=== PATIENT | male | born 1990 | race American Indian/Alaskan Native ===

== ENCOUNTER 2016-10-12 09:11 | Emergency (ER) | payer SELFPAY ==
[2016-10-12 09:13] VITALS: BMI 24.2
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
[2016-10-12] MEDS ORDERED: Sodium Chloride 0.9% 1,000 ML IV STA (09:18)
[2016-10-12 09:19] VITALS: TEMP 97.7; O2SAT 100
[2016-10-12] MEDS ORDERED: DiphenhydrAMINE 50 mg/ml Inj IVP STA (09:19)
[2016-10-12 09:50] LABS: ADD MANUAL DIFF? NO
[2016-10-12 10:00] LABS: BASO # 0.04 K/mm3 (0.0-2.0); BASO % 0.6 % (0.0-3.0); EOS # 0.2 (0.0-0.7); EOS % 2.3 % (1.5-5.0); GRAN # 4.18 (1.4-6.5); GRAN % 65.5 % (50.0-68.0); HEMATOCRIT 42.6 % (42.0-52.0); LYMPH # 1.2 (1.2-3.4); LYMPH % 19.4 % (22.0-35.0); MEAN CELL VOLUME 79.3 fL (80.0-105.0); MEAN CORPUSCULAR HEMOGLOBIN 26.4 pg (25.0-35.0); MEAN CORPUSCULAR HGB CONC 33.3 g/dl (31.0-37.0); MEAN PLATELET VOLUME 10.5 fl (7.0-11.0); MONO # 0.8 (0.1-0.6); MONO % 12.2 % (1.0-6.0); PLATELET COUNT 200 10^3/uL (120.0-450.0); RED CELL DISTRIBUTION WIDTH 14.4 % (11.5-14.5); WHITE BLOOD COUNT 6.4 10^3/ul (4.5-11.0)
[2016-10-12 10:03] LABS: ALB/GLOB RATIO 1.1 (1.1-1.8); ALKALINE PHOSPHATASE 62 U/L (38-133); ALT/SGPT 44 U/L (7-56); AST/SGOT 39 U/L (15-59); BILIRUBIN,TOTAL 2.5 mg/dL (0.2-1.3); BLOOD UREA NITROGEN 12 mg/dL (7-21); CALCIUM 9.9 mg/dL (8.4-10.5); CARBON DIOXIDE 30 mmol/L (21-33); CHLORIDE 99 mmol/L (98-107); GFR AFRICAN-AMERICAN > 60; GLUCOSE,RANDOM 85 mg/dL (70-110); SODIUM 138 mmol/L (132-148); TOTAL PROTEIN 8.7 g/dL (5.8-8.3)
[2016-10-12 10:05] LABS: INR 0.99 (0.93-1.08); PARTIAL THROMBOPLASTIN TIME 28.5 Seconds (23.7-30.8)
--- NOTE | 2016-10-12 10:18 | CT ---
PROCEDURE: CT HEAD WITHOUT CONTRAST. HISTORY: headache COMPARISON: None available. TECHNIQUE: Axial computed tomography images were obtained through the head/brain without intravenous contrast. Radiation dose: Total exam DLP = 677.45 mGy-cm. This CT exam was performed using one or more of the following dose reduction techniques: Automated exposure control, adjustment of the mA and/or kV according to patient size, and/or use of iterative reconstruction technique. FINDINGS: HEMORRHAGE: No intracranial hemorrhage. BRAIN: No mass effect or edema. No atrophy or chronic microvascular ischemic changes. VENTRICLES: Unremarkable. No hydrocephalus. CALVARIUM: Unremarkable. PARANASAL SINUSES: Unremarkable as visualized. No significant inflammatory changes. MASTOID AIR CELLS: Unremarkable as visualized. No inflammatory changes. OTHER FINDINGS: None. IMPRESSION: Normal CT of the Head. No intracranial mass, hemorrhage or evidence of acute infarct.
[2016-10-12 11:01] VITALS: BP 125/64; PULSE 65; RESP 17
--- NOTE | 2016-10-13 11:10 | CARD ---
APPROVED REPORT EKG Measurement Heart [id number] [place] [id number] <Conclusion> Normal sinus rhythm Normal ECG
== END 2016-10-12 11:10 | disposition home or self-care (01) ==
LOC: ED 09:11
DX: R51 Headache (principal)
CPT/HCPCS: 70450; 80053; 85025; 85610; 85730; 93005; 96361; 96374; 96375; 99285; J1200; J2765; J7040

== ENCOUNTER 2016-10-25 07:20 | Observation (INO) | payer SELFPAY ==
[2016-10-25] MEDS ORDERED: Sodium Chloride 0.9% 1,000 ML IV STA (07:55)
--- NOTE | 2016-10-25 08:07 | ED PDOC ---
Arrival/HPI - General Chief Complaint: Weakness/Neurological Deficit Time Seen by Provider: 10/25/16 07:47 Historian: Patient - History of Present Illness Narrative History of Present Illness (Text): 10/25/16 07:55 A 26 year old, whose past medical history includes post concussion syndrome, presents to the emergency department after a syncopal episode at work. Patient reports he was feeling fine throughout the night prior to episode, denies any headaches, chest pain or shortness of breath. He states this morning he felt dizzy, went outside to get fresh air and while going back inside to work he passed out. He reports he loss consciousness for a few seconds and hit the left side of his head on the floor. Patient denies any other injuries, fever, chills , nausea, vomiting, diarrhea, abdominal pain, chest pain, shortness of breath or any other complaints. Patient reports he experienced a headache and syncopal episode 2 weeks ago and 5 months ago. 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 He reports eating normally today. He denies drug use. He denies change in usual habits and denies that the episode was triggered by sitting to standing. PMD: None Time/Duration: Prior to Arrival Symptom Course: Unchanged Quality: Other Context: Work Past Medical History - Provider Review Nursing Documentation Reviewed: Yes - Infectious Disease Hx of Infectious Diseases: None - Neurological Other/Comment: post concusion syndrom - Psychiatric Hx Substance Use: No - Anesthesia Hx Anesthesia: No Family/Social History - Physician Review Nursing Documentation Reviewed: Yes Family/Social History: No Known Family HX Smoking Status: Unknown If Ever Smoked Hx Alcohol Use: No Hx Substance Use: No Allergies/Home Meds Allergies/Adverse Reactions: Allergies No Known Allergies Allergy (Verified 10/12/16 09:16) Review of Systems - Physician Review All systems were reviewed & negative as marked: Yes - Review of Systems Constitutional: absent: Fevers, Night Sweats Eyes: absent: Vision Changes ENT: absent: Hearing Changes Respiratory: absent: SOB, Cough, Sputum, Wheezing Cardiovascular: Syncope. absent: Chest Pain, Palpitations, Edema Gastrointestinal: absent: Abdominal Pain, Constipation, Diarrhea, Nausea, Vomiting Genitourinary Male: absent: Dysuria Musculoskeletal: absent: Arthralgias Skin: absent: Rash Neurological: Dizziness. absent: Headache, Focal Weakness, Gait Changes, Speech Changes, Facial Droop Hemo/Lymphatic: absent: Adenopathy Psychiatric: absent: Anxiety Physical Exam Vital Signs Reviewed: Yes Vital Signs Temp Pulse Resp BP Pulse Ox 10/25/16 07:32 97.8 F 81 20 156/93 H 99 10/25/16 07:26 97.8 F 77 16 127/69 99 Temperature: Afebrile Blood Pressure: Normal Pulse: Regular Respiratory Rate: Normal Appearance: Positive for: Well-Appearing, Non-Toxic, Comfortable Pain Distress: None Mental Status: Positive for: Alert and Oriented X 3 Finger Stick Blood Glucose: 89 - Systems Exam Head: Present: Atraumatic, Normocephalic Pupils: Present: PERRL Extroacular Muscles: Present: EOMI Conjunctiva: Present: Normal Mouth: Present: Moist Mucous Membranes Neck: Present: Normal Range of Motion. No: MIDLINE TENDERNESS Respiratory/Chest: Present: Clear to Auscultation, Good Air Exchange. No: Respiratory Distress, Accessory Muscle Use Cardiovascular: Present: Regular Rate and Rhythm, Normal S1, S2. No: Murmurs Abdomen: Present: Normal Bowel Sounds. No: Tenderness, Distention, Peritoneal Signs Back: Present: Normal Inspection Upper Extremity: Present: Normal Inspection. No: Cyanosis, Edema Lower Extremity: Present: Normal Inspection. No: Edema Neurological: Present: GCS=15, CN II-XII Intact, Speech Normal, Gait Normal Skin: Present: Warm, Dry, Normal Color. No: Rashes Psychiatric: Present: Alert, Oriented x 3, Normal Insight, Normal Concentration Medical Decision Making ED Course and Treatment: 10/25/16 07:55 Impression: A 26 year old male with dizziness and syncope. Patient reports head trauma and loss of consciousness. Patient has experienced similar episodes twice before. Differential Diagnosis included but are not limited to: Plan: -- Head CT -- Chest xray -- EKG -- Labs -- Tylenol and IV fluids -- Reassess and disposition Prior Visits: Notes and results from previous visits were reviewed. Patient last seen in the ED on 10/12/16 for near syncope. Patient was referred to a neurologist, however , has not followed up. Progress Notes: EKG shows NSR at 67 BPM with normal intervals and no St changes, QTc 49. Interpreted by me. Report Date : 10/25/2016 08:39:50 PROCEDURE: CT HEAD WITHOUT CONTRAST. Dictator : Jv Carlisle MD IMPRESSION: Normal CT of the Head. Report Date : 10/25/2016 08:52:20 Procedure: Chest xray Dictator : Jv Carlisle MD IMPRESSION: No active disease. 10/25/16 08:48 CT head negative. Cxray negative. CBC and CMP WNL. D-dimer negative. No significant change in orthostatic vitals. I have no explanation for syncope today. This presentation is concerning due to 2 prior episodes of near syncope. He has no triggering factors such as sitting to standing, exposure to chemicals or dehydration. I am concerned that patient is unable to follow-up with neurology or internal medicine as he has no PMD and no insurance. Although he is young with no cardiac risk factors, his lack of ability to follow -up, combined with multiple recent episodes with no clear trigger puts him at risk and I don't believe I can safely dc. Will transfer to [facility] under hospitalist. Spoke with Dr. Todd Martell. - Lab Interpretations Lab Results: 10/25/16 07:50 10/25/16 07:50 Lab Results 10/25/16 07:50: D-Dimer, Quantitative 0.19 10/25/16 07:50: Sodium 139, Potassium 4.0, Chloride 102, Carbon Dioxide 30, Anion Gap 11, BUN 9, Creatinine 0.9, Est GFR ( Amer) > 60, Est GFR (Non- Af Amer) > 60, Random Glucose 69 L, Calcium 9.1, Phosphorus 3.5, Magnesium 2.2, Total Bilirubin 0.9, AST 32, ALT 36, Alkaline Phosphatase 105, Total Creatine Kinase 358 H, CK-MB (CK-2) 2.9, CK-MB (CK-2) % 0.8 L, Troponin I < 0.01, Total Protein 7.5, Albumin 4.2, Globulin 3.3, Albumin/Globulin Ratio 1.3 10/25/16 07:50: WBC 4.8 D, RBC 5.06, Hgb 13.3 L, Hct 40.4 L, MCV 79.8 L, MCH 26.3, MCHC 32.9, RDW 14.4, Plt Count 188, MPV 10.4, Gran % 61.1, Lymph % (Auto) 22.0, [place] % (Auto) 13.4 H, Eos % (Auto) 2.9, Baso % (Auto) 0.6, Gran # 2.91, Lymph # 1.1 L, [place] # 0.6, Eos # 0.1, Baso # 0.03 I have reviewed the lab results: Yes - RAD Interpretation Radiology Orders: 10/25/16 07:55 HEAD W/O CONTRAST [CT] Stat CHEST TWO VIEWS (PA/LAT) [RAD] Stat - Medication Orders Current Medication Orders: Discontinued Medications Acetaminophen (Tylenol 325mg Tab) 975 mg PO STAT STA Stop: 10/25/16 08:00 Last Admin: 10/25/16 08:52 Dose: 975 mg Sodium Chloride (Sodium Chloride 0.9%) 1,000 mls @ 999 mls/hr IV .Q1H1M STA Stop: 10/25/16 08:55 Last Admin: 10/25/16 08:53 Dose: 999 mls/hr - Scribe Statement The provider has reviewed the documentation as recorded by the Alyssaibem Vizcaino Provider Scribe Attestation: All medical record entries made by the Scribe were at my direction and personally dictated by me. I have reviewed the chart and agree that the record accurately reflects my personal performance of the history, physical exam, medical decision making, and the department course for this patient. I have also personally directed, reviewed, and agree with the discharge instructions and disposition. Disposition/Present on Arrival - Present on Arrival Any Indicators Present on Arrival: No History of DVT/PE: No History of Uncontrolled Diabetes: No Urinary Catheter: No History of Decub. Ulcer: No History Surgical Site Infection Following: None - Disposition Have Diagnosis and Disposition been Completed?: Yes Diagnosis: Syncope Disposition: HOSPITALIZED Disposition Time: 08:54 Patient Plan: Observation Patient Problems: Current Active Problems Problem Status Onset Syncope Acute Condition: FAIR
[2016-10-25 08:10] LABS: ADD MANUAL DIFF? NO
[2016-10-25 08:14] LABS: BASO # 0.03 K/mm3 (0.0-2.0); BASO % 0.6 % (0.0-3.0); EOS # 0.1 (0.0-0.7); EOS % 2.9 % (1.5-5.0); GRAN # 2.91 (1.4-6.5); GRAN % 61.1 % (50.0-68.0); HEMATOCRIT 40.4 % (42.0-52.0); LYMPH # 1.1 (1.2-3.4); MEAN CELL VOLUME 79.8 fL (80.0-105.0); MEAN CORPUSCULAR HEMOGLOBIN 26.3 pg (25.0-35.0); MEAN CORPUSCULAR HGB CONC 32.9 g/dl (31.0-37.0); MEAN PLATELET VOLUME 10.4 fl (7.0-11.0); MONO # 0.6 (0.1-0.6); MONO % 13.4 % (1.0-6.0); PLATELET COUNT 188 10^3/uL (120.0-450.0); RED CELL DISTRIBUTION WIDTH 14.4 % (11.5-14.5); WHITE BLOOD COUNT 4.8 10^3/ul (4.5-11.0)
[2016-10-25 08:24] LABS: ALB/GLOB RATIO 1.3 (1.1-1.8); ALKALINE PHOSPHATASE 105 U/L (38-133); ALT/SGPT 36 U/L (7-56); AST/SGOT 32 U/L (15-59); BILIRUBIN,TOTAL 0.9 mg/dL (0.2-1.3); BLOOD UREA NITROGEN 9 mg/dL (7-21); CALCIUM 9.1 mg/dL (8.4-10.5); CARBON DIOXIDE 30 mmol/L (21-33); CHLORIDE 102 mmol/L (98-107); GFR AFRICAN-AMERICAN > 60; GLUCOSE,RANDOM 69 mg/dL (70-110); MAGNESIUM 2.2 mg/dL (1.7-2.2); PHOSPHOROUS 3.5 mg/dL (2.5-4.5); SODIUM 139 mmol/L (132-148); TOTAL PROTEIN 7.5 g/dL (5.8-8.3)
[2016-10-25 08:37] LABS: TROPONIN I < 0.01 ng/mL
--- NOTE | 2016-10-25 08:41 | CT ---
PROCEDURE: CT HEAD WITHOUT CONTRAST. HISTORY: fall from standing COMPARISON: 10/12/2016 CT TECHNIQUE: Axial computed tomography images were obtained through the head/brain without intravenous contrast. Radiation dose: Total exam DLP = 677 mGy-cm. This CT exam was performed using one or more of the following dose reduction techniques: Automated exposure control, adjustment of the mA and/or kV according to patient size, and/or use of iterative reconstruction technique. FINDINGS: HEMORRHAGE: No intracranial hemorrhage. BRAIN: No mass effect or edema. No atrophy or chronic microvascular ischemic changes. VENTRICLES: Unremarkable. No hydrocephalus. CALVARIUM: Unremarkable. PARANASAL SINUSES: Unremarkable as visualized. No significant inflammatory changes. MASTOID AIR CELLS: Unremarkable as visualized. No inflammatory changes. OTHER FINDINGS: None. IMPRESSION: Normal CT of the Head.
--- NOTE | 2016-10-25 08:54 | RAD ---
HISTORY: syncope COMPARISON: No prior. TECHNIQUE: Chest PA and lateral FINDINGS: LUNGS: No active pulmonary disease. PLEURA: No significant pleural effusion identified. No pneumothorax apparent. CARDIOVASCULAR: Normal. OSSEOUS STRUCTURES: No significant abnormalities. VISUALIZED UPPER ABDOMEN: Normal. OTHER FINDINGS: None. IMPRESSION: No active disease.
--- NOTE | 2016-10-25 10:16 | CARD ---
APPROVED REPORT EKG Measurement Heart [id number] <Conclusion> Normal sinus rhythm Normal ECG
[2016-10-25] MEDS: Sodium Chloride 0.9% 1,000 ML IV SCH ×3 (10:45→21:45)
[2016-10-25] MEDS ORDERED: Apap-Butalbital-Caffeine 325-50-40mg Tab PO PRN (13:02)
--- NOTE | 2016-10-25 13:24 | CP.PCM.HP ---
Addendum entered and electronically signed by Tram Lara DO 10/25/16 13:57: accuchecks ordered, pt's initial glucose is 69 Original Note: <Tram Lara - Last Filed: 10/25/16 13:44> History of Present Illness - History of Present Illness History of Present Illness: Hospitalist Note for Dr. Alan ZELAYA HPI: 26 yo M w/ PMHx of asthma, in winter only, presents to ED via EMS after AM syncopal episode and fall. 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 Cannot say how long he lost consciousness for, but remembers trying to get up and being too weak, and falling again. Security at his place of work called the EMS. Denies fever, urinary or bowel incontinence, tongue biting, numbness, tingling, dizziness, chest pain, N/V, abdominal pain, and urinary or stool changes. PMHx: asthma Psxhx: denies, other than tooth extraction 2 years prior ALL: NKDA Medications: fiorcet social: denies smoking, etoh, illicit drugs Present on Admission - Present on Admission Any Indicators Present on Admission: No Review of Systems - Review of Systems All systems: reviewed and no additional remarkable complaints except - Constitutional Constitutional: absent: Chills, Fever - Cardiovascular Cardiovascular: absent: Chest Pain, Dyspnea - Respiratory Respiratory: absent: Cough, Dyspnea - Gastrointestinal Gastrointestinal: absent: Abdominal Pain, Diarrhea - Genitourinary Genitourinary: absent: Hematuria, Pyuria - Neurological Neurological: Syncope, Weakness Past Patient History - Infectious Disease Hx of Infectious Diseases: None - Past Social History Smoking Status: Unknown If Ever Smoked - NEUROLOGICAL Other/Comment: post concusion syndrom - PSYCHIATRIC Hx Substance Use: No - ANESTHESIA Hx Anesthesia: No Meds Allergies/Adverse Reactions: Allergies Allergy/AdvReac Type Severity Reaction Status Date / Time No Known Allergies Allergy Verified 10/12/16 09:16 Physical Exam - Head Exam Head Exam: NORMAL INSPECTION, NORMOCEPHALIC - Eye Exam Eye Exam: EOMI, Normal appearance - ENT Exam ENT Exam: Mucous Membranes Moist, Normal Exam - Respiratory Exam Respiratory Exam: Clear to Auscultation Bilateral, NORMAL BREATHING PATTERN - Cardiovascular Exam Cardiovascular Exam: +S1, +S2. absent: Tachycardia - GI/Abdominal Exam GI & Abdominal Exam: Soft. absent: Tenderness - Exam External exam: absent: Erythema, Lacerations - Extremities Exam Extremities exam: Negative for: pedal edema, tenderness - Neurological Exam Neurological exam: Alert, CN II-XII Intact, Oriented x3 - Skin Skin Exam: Intact, Normal Color Results - Vital Signs Recent Vital Signs: Last Vital Signs Temp 98.5 F 10/25/16 12:00 Pulse 60 10/25/16 12:00 Resp 20 10/25/16 12:00 BP 102/54 L 10/25/16 12:00 Pulse Ox 97 10/25/16 10:40 - Labs Result Diagrams: 10/25/16 07:50 10/25/16 07:50 Assessment & Plan - Assessment and Plan (Free Text) Plan: 26 yo M w/PMHx of asthma (cold weather) and prior admissions for syncope, presents with syncope and reported fall this AM. CT head negative for acute hemorrhage, EKG NSR at 67 bpm w/o st elevations or depressions. Initial troponin level is negative, and cbc and cmp wnl. Orthostatic vitals do not support orthostatic hypotension. Telemetry Observation for syncope. Syncope: ECHO ordered neurology consult, help appreciated NS 100cc/hr neurochecks UDS PPx measures: zofran protonix barb stocking ambulation <Alan ZELAYA,Adolfo - Last Filed: 10/25/16 14:30> Results - Vital Signs Recent Vital Signs: Last Vital Signs Temp 97.8 F 10/25/16 13:25 Pulse 61 10/25/16 13:25 Resp 16 10/25/16 13:25 BP 121/66 10/25/16 13:25 Pulse Ox 97 10/25/16 10:40 - Labs Result Diagrams: 10/25/16 07:50 10/25/16 07:50 Attending/Attestation - Attestation I have personally seen and examined this patient.: Yes I have fully participated in the care of the patient.: Yes I have reviewed all pertinent clinical information: Yes Notes (Text): 10/25/16 14:27 Patient was seen and examined with medical or surgical instrument maker .Agreed with resident assessment and plan. 26 Yrs old young male with PMH of intermittent asthma, [place] is admitted with episode of syncope while walking, likely orthostatic hypotension, EKG NSR, CT head is negative, there is no focal deficit, will hydrate patien, will monitor in tele for arrhythmia for 24 hour, had similar episode 2 weeks back. If no arrhythmia can be discharged in 24 hour. Management plan was discussed in detail with patient Education was provided.
[2016-10-25 13:34] VITALS: BMI 25.0
[2016-10-25] MEDS ORDERED: Pneumococcal 23-Valent Vaccine IM ONE (13:34)
[2016-10-25] MEDS ORDERED: Naproxen 550 mg Tab PO PRN (14:00)
[2016-10-25] MEDS: Pantoprazole 40 mg EC Tab PO SCH (14:37)
[2016-10-26 05:49] VITALS: O2SAT 99
[2016-10-26 08:38] LABS: ADD MANUAL DIFF? NO
[2016-10-26 08:49] LABS: BASO # 0.01 K/mm3 (0.0-2.0); BASO % 0.2 % (0.0-3.0); EOS # 0.2 (0.0-0.7); EOS % 3.1 % (1.5-5.0); GRAN # 3.14 (1.4-6.5); GRAN % 60.8 % (50.0-68.0); LYMPH # 1.1 (1.2-3.4); LYMPH % 21.9 % (22.0-35.0); MEAN CELL VOLUME 80.2 fL (80.0-105.0); MEAN CORPUSCULAR HEMOGLOBIN 26.2 pg (25.0-35.0); MEAN CORPUSCULAR HGB CONC 32.7 g/dl (31.0-37.0); MONO # 0.7 (0.1-0.6); PLATELET COUNT 175 10^3/uL (120.0-450.0); RED CELL DISTRIBUTION WIDTH 14.6 % (11.5-14.5); WHITE BLOOD COUNT 5.2 10^3/ul (4.5-11.0)
[2016-10-26 08:51] LABS: ALB/GLOB RATIO 1.3 (1.1-1.8); ALKALINE PHOSPHATASE 60 U/L (38-133); ALT/SGPT 35 U/L (7-56); AST/SGOT 25 U/L (15-59); BILIRUBIN,TOTAL 1.3 mg/dL (0.2-1.3); BLOOD UREA NITROGEN 10 mg/dL (7-21); CALCIUM 8.8 mg/dL (8.4-10.5); CARBON DIOXIDE 28 mmol/L (21-33); CHLORIDE 103 mmol/L (95-110); GFR AFRICAN-AMERICAN > 60; GLUCOSE,RANDOM 89 mg/dL (70-110); POTASSIUM 4.1 mmol/L (3.6-5.0); SODIUM 138 mmol/L (132-148); TOTAL PROTEIN 7.1 g/dL (5.8-8.3)
[2016-10-26] MEDS: Pantoprazole 40 mg EC Tab PO SCH (09:29)
[2016-10-26 11:54] VITALS: RESP 20
[2016-10-26] MEDS: Sodium Chloride 0.9% 1,000 ML IV SCH (13:18)
--- NOTE | 2016-10-26 16:22 | CP.PCM.DIS ---
<Tram Lara - Last Filed: 10/26/16 23:59> Provider - Provider Date of Admission: 10/25/16 09:21 Attending physician: Wendy Martell MD Primary care physician: NO PRIMARY CARE PROVIDER Consults: Dr. Sara Henry, neurology Time Spent in preparation of Discharge (in minutes): 35 Hospital Course - Lab Results Lab Results: Most Recent Lab Values WBC 5.2 10^3/ul (4.5-11.0) 10/26/16 08:20 RBC 5.11 10^6/uL (3.5-6.1) 10/26/16 08:20 Hgb 13.4 gm/dL (14.0-18.0) L 10/26/16 08:20 Hct 41.0 % (42.0-52.0) L 10/26/16 08:20 MCV 80.2 fL (80.0-105.0) 10/26/16 08:20 MCH 26.2 pg (25.0-35.0) 10/26/16 08:20 MCHC 32.7 g/dl (31.0-37.0) 10/26/16 08:20 RDW 14.6 % (11.5-14.5) H 10/26/16 08:20 Plt Count 175 10^3/uL (120.0-450.0) 10/26/16 08:20 MPV 10.0 fl (7.0-11.0) 10/26/16 08:20 Gran % 60.8 % (50.0-68.0) 10/26/16 08:20 Lymph % (Auto) 21.9 % (22.0-35.0) L 10/26/16 08:20 [place] % (Auto) 14.0 % (1.0-6.0) H 10/26/16 08:20 Eos % (Auto) 3.1 % (1.5-5.0) 10/26/16 08:20 Baso % (Auto) 0.2 % (0.0-3.0) 10/26/16 08:20 Gran # 3.14 (1.4-6.5) 10/26/16 08:20 Lymph # 1.1 (1.2-3.4) L 10/26/16 08:20 [place] # 0.7 (0.1-0.6) H 10/26/16 08:20 Eos # 0.2 (0.0-0.7) 10/26/16 08:20 Baso # 0.01 K/mm3 (0.0-2.0) 10/26/16 08:20 D-Dimer, Quantitative 0.19 mg/L FEU (0-0.50) 10/25/16 07:50 Sodium 138 mmol/L (132-148) 10/26/16 08:20 Potassium 4.1 mmol/L (3.6-5.0) 10/26/16 08:20 Chloride 103 mmol/L (95-110) 10/26/16 08:20 Carbon Dioxide 28 mmol/L (21-33) 10/26/16 08:20 Anion Gap 11 (10-20) 10/26/16 08:20 BUN 10 mg/dL (7-21) 10/26/16 08:20 Creatinine 0.9 mg/dL (0.5-1.4) 10/26/16 08:20 Est GFR ( Amer) > 60 10/26/16 08:20 Est GFR (Non-Af Amer) > 60 10/26/16 08:20 POC Glucose (mg/dL) 86 mg/dL (65-110) 10/26/16 07:14 Random Glucose 89 mg/dL (70-110) 10/26/16 08:20 Calcium 8.8 mg/dL (8.4-10.5) 10/26/16 08:20 Phosphorus 3.5 mg/dL (2.5-4.5) 10/25/16 07:50 Magnesium 2.2 mg/dL (1.7-2.2) 10/25/16 07:50 Total Bilirubin 1.3 mg/dL (0.2-1.3) 10/26/16 08:20 AST 25 U/L (15-59) 10/26/16 08:20 ALT 35 U/L (7-56) 10/26/16 08:20 Alkaline Phosphatase 60 U/L (38-133) 10/26/16 08:20 Total Creatine Kinase 358 U/L (35-230) H 10/25/16 07:50 CK-MB (CK-2) 2.9 ng/mL (0.0-3.6) 10/25/16 07:50 CK-MB (CK-2) % 0.8 % (2.5-3.0) L 10/25/16 07:50 Troponin I < 0.01 ng/mL 10/25/16 07:50 Total Protein 7.1 g/dL (5.8-8.3) 10/26/16 08:20 Albumin 4.0 g/dL (3.0-4.8) 10/26/16 08:20 Globulin 3.2 gm/dL 10/26/16 08:20 Albumin/Globulin Ratio 1.3 (1.1-1.8) 10/26/16 08:20 - Hospital Course Hospital Course: 26 YO M with PMHx of intermittent asthma, migraine is admitted with episode of syncope while walking. Had similar episode two weeks prior. EKG NSR, CT head is negative, there is no focal deficit. Treated with IV hydration and under telemetry monitoring for syncope. Discharged in fair condition after ECHO, and evaluation by Dr. Henry, neurology consult. Pt instructed to f/u with PMD and neurology, and given scripts for meclizine and thiamine, folic acid, and multivitamin. Discharge Exam - Head Exam Head Exam: NORMAL INSPECTION, NORMOCEPHALIC - Eye Exam Eye Exam: EOMI, Normal appearance Pupil Exam: NORMAL ACCOMODATION, PERRL - Respiratory Exam Respiratory Exam: NORMAL BREATHING PATTERN, UNREMARKABLE - Cardiovascular Exam Cardiovascular Exam: Bradycardia, +S1, +S2 - GI/Abdominal Exam GI & Abdominal Exam: Soft. absent: Tenderness - Exam External exam: absent: Ecchymosis, Erythema - Extremities Exam Extremities exam: normal capillary refill, pedal pulses present - Neurological Exam Neurological exam: Alert, CN II-XII Intact, Oriented x3 - Skin Skin Exam: Dry, Intact Discharge Plan - Discharge Medications Prescriptions: Folic Acid 1 mg PO DAILY #14 tab Meclizine [Meclizine*] 25 mg PO Q6 #30 tab Multivitamin [Daily Vitamin Formula] 1 each PO DAILY #14 tablet Thiamine [Vitamin B1 Tab] 100 mg PO DAILY #14 tab - Follow Up Plan Condition: FAIR Disposition: HOME/ ROUTINE Instructions: Syncope (DC), Syncope (GEN) Additional Instructions: You are discharged home. Please follow-up with your PMD of choice within one week for neurology referral and f/u care. Please return to the emergency department for worsening of symptoms. Please take the new medications of meclizine and thiamine, folic acid and multivitamin as directed. Referrals: [facility] [Outside] PCP,NO [Primary Care Provider] - <Adolfo Phillips MD - Last Filed: 10/29/16 07:30> Provider - Provider Date of Admission: 10/25/16 09:21 Attending physician: Wendy Martell MD Primary care physician: NO PRIMARY CARE PROVIDER Hospital Course - Lab Results Lab Results: Most Recent Lab Values WBC 5.2 10^3/ul (4.5-11.0) 10/26/16 08:20 RBC 5.11 10^6/uL (3.5-6.1) 10/26/16 08:20 Hgb 13.4 gm/dL (14.0-18.0) L 10/26/16 08:20 Hct 41.0 % (42.0-52.0) L 10/26/16 08:20 MCV 80.2 fL (80.0-105.0) 10/26/16 08:20 MCH 26.2 pg (25.0-35.0) 10/26/16 08:20 MCHC 32.7 g/dl (31.0-37.0) 10/26/16 08:20 RDW 14.6 % (11.5-14.5) H 10/26/16 08:20 Plt Count 175 10^3/uL (120.0-450.0) 10/26/16 08:20 MPV 10.0 fl (7.0-11.0) 10/26/16 08:20 Gran % 60.8 % (50.0-68.0) 10/26/16 08:20 Lymph % (Auto) 21.9 % (22.0-35.0) L 10/26/16 08:20 [place] % (Auto) 14.0 % (1.0-6.0) H 10/26/16 08:20 Eos % (Auto) 3.1 % (1.5-5.0) 10/26/16 08:20 Baso % (Auto) 0.2 % (0.0-3.0) 10/26/16 08:20 Gran # 3.14 (1.4-6.5) 10/26/16 08:20 Lymph # 1.1 (1.2-3.4) L 10/26/16 08:20 [place] # 0.7 (0.1-0.6) H 10/26/16 08:20 Eos # 0.2 (0.0-0.7) 10/26/16 08:20 Baso # 0.01 K/mm3 (0.0-2.0) 10/26/16 08:20 D-Dimer, Quantitative 0.19 mg/L FEU (0-0.50) 10/25/16 07:50 Sodium 138 mmol/L (132-148) 10/26/16 08:20 Potassium 4.1 mmol/L (3.6-5.0) 10/26/16 08:20 Chloride 103 mmol/L (95-110) 10/26/16 08:20 Carbon Dioxide 28 mmol/L (21-33) 10/26/16 08:20 Anion Gap 11 (10-20) 10/26/16 08:20 BUN 10 mg/dL (7-21) 10/26/16 08:20 Creatinine 0.9 mg/dL (0.5-1.4) 10/26/16 08:20 Est GFR ( Amer) > 60 10/26/16 08:20 Est GFR (Non-Af Amer) > 60 10/26/16 08:20 POC Glucose (mg/dL) 82 mg/dL (65-110) 10/26/16 16:11 Random Glucose 89 mg/dL (70-110) 10/26/16 08:20 Calcium 8.8 mg/dL (8.4-10.5) 10/26/16 08:20 Phosphorus 3.5 mg/dL (2.5-4.5) 10/25/16 07:50 Magnesium 2.2 mg/dL (1.7-2.2) 10/25/16 07:50 Total Bilirubin 1.3 mg/dL (0.2-1.3) 10/26/16 08:20 AST 25 U/L (15-59) 10/26/16 08:20 ALT 35 U/L (7-56) 10/26/16 08:20 Alkaline Phosphatase 60 U/L (38-133) 10/26/16 08:20 Total Creatine Kinase 358 U/L (35-230) H 10/25/16 07:50 CK-MB (CK-2) 2.9 ng/mL (0.0-3.6) 10/25/16 07:50 CK-MB (CK-2) % 0.8 % (2.5-3.0) L 10/25/16 07:50 Troponin I < 0.01 ng/mL 10/25/16 07:50 Total Protein 7.1 g/dL (5.8-8.3) 10/26/16 08:20 Albumin 4.0 g/dL (3.0-4.8) 10/26/16 08:20 Globulin 3.2 gm/dL 10/26/16 08:20 Albumin/Globulin Ratio 1.3 (1.1-1.8) 10/26/16 08:20 Attending/Attestation - Attestation I have personally seen and examined this patient.: Yes I have fully participated in the care of the patient.: Yes I have reviewed all pertinent clinical information, including history, physical exam and plan: Yes Notes (Text): 10/29/16 07:26 Patient was seen and examined with behavioral medical director .Agreed with resident assessment and plan. 26 Yrs old male was admitted with syncope, patient was monitored in tele, no cardiac arrythmia was noticed.He also has 2D Echo that showed EF 65%, there was no significant valvular abnormalities.Patient CT scan of head was normal.He was also evaluated by Neurology, no further work up was recommended.Patient is ambulatory at the time of discharge.Patient was having mild positional vertigo and was treated with PRN Meclizine. Management plan was discussed in detail with patient Education was provided.
--- NOTE | 2016-10-26 17:12 | CARD ---
APPROVED REPORT EXAM: Two-dimensional and M-mode echocardiogram with Doppler and color Doppler. INDICATION Syncope 2D DIMENSIONS Left Atrium (2D)4.0 (1.6-4.0cm)IVSd0.9 (0.7-1.1cm) LVDd4.6 (3.9-5.9cm)PWd1.1 (0.7-1.1cm) LVDs2.9 (2.5-4.0cm)FS (%) 35.9 % LVEF (%)65.6 (>50%) M-Mode DIMENSIONS Aortic Root3.20 (2.2-3.7cm)Aortic Cusp Exc.2.20 (1.5-2.0cm) Aortic Valve AoV Peak Iodlxufl889.0cm/Sophy Peak GR.6mmHg Mitral Valve MV E Ixlugins03.7cm/sMV A Kkxsmcdb72.8cm/sE/A ratio1.9 TDI Lateral E' Peak V14.20cm/sMedial E' Peak V10.30cm/sE/Lateral E'7.0 E/Medial E'9.6 Pulmonary Valve PV Peak Bebiscvq18.1cm/sPV Peak Grad.2mmHg Tricuspid Valve TR Peak Npjmaugy824il/sRAP [id number] Peak Gr.25mmHg [id number] LEFT VENTRICLE The left ventricle is normal size. There is normal left ventricular wall thickness. The left ventricular function is normal.EF-65% There is normal LV segmental wall motion. The left ventricular diastolic function is normal. No left ventricle thrombus noted on this study. There is no ventricular septal defect visualized. There is no left ventricular aneurysm. There is no mass noted in the left ventricle. RIGHT VENTRICLE The right ventricle is normal size. There is normal right ventricular wall thickness. The right ventricular systolic function is normal. ATRIA The left atrium is borderline dilated. The right atrium size is normal. The interatrial septum is intact with no evidence for an atrial septal defect. AORTIC VALVE The aortic valve is thickened but opens well. There is trace to mild aortic regurgitation. There is no aortic valvular stenosis. There is no aortic valvular vegetation. MITRAL VALVE The mitral valve is thickened but opens well. Mitral regurgitation is mild. There is no mitral valve stenosis. There is no evidence of mitral valve prolapse. TRICUSPID VALVE The tricuspid valve leaflets are thickened , but open well. There is trace to mild tricuspid regurgitation.RVSP-35 mmof Hg. There is no tricuspid valve stenosis. There is no tricuspid valve prolapse or vegetation. PULMONIC VALVE The pulmonary valve is normal in structure. There is trace pulmonic valvular regurgitation. There is no pulmonic valvular stenosis. GREAT VESSELS The aortic root is normal in size. The ascending aorta is normal in size. The pulmonary artery is normal. The IVC is normal in size and collapses >50% with inspiration. PERICARDIAL EFFUSION There is no pleural effusion. There is no pericardial effusion. <Conclusion> Normal Chamber Size. EF-65% There is trace to mild aortic regurgitation. Mitral regurgitation is mild. There is trace to mild tricuspid regurgitation.RVSP-35 mmof Hg.
[2016-10-26 18:33] VITALS: BP 104/60; PULSE 63; TEMP 99.3
--- NOTE | 2016-10-26 20:00 | CON ---
DATE: 10/26/2016 A 26-year-old black male with past medical history of asthma, and came here with a syncopal episode. The patient fell at work and lost consciousness, hitting his head. CAT scan of the head was done, w hich was reported negative, no bleed. PAST MEDICAL HISTORY: Asthma. ALLERGIES: No known drug allergies. MEDICATIONS: Fioricet. PHYSICAL EXAMINATION: HEENT: Normocephalic, atraumatic. NECK: Supple. NEUROLOGIC: Alert, awake, oriented x 3. No aphasia. Cranial nerves II through XII were tested. Pu pils reactive. EOM intact. Visual pickard full. No facial asymmetry. Tongue midline. Motor examin ation: Moves all the extremities equally. Tone normal. Deep tendon reflexes 1+. Both plantars are downgoing. Sensory appears intact. Cerebellar gait deferred. IMPRESSION: Syncope, less likely seizure. CAT scan of the head was negative. Blood pressure was 10 2/54. LABORATORY DATA: WBC 4.8, hemoglobin 13.3, hematocrit 40.4, platelets 188. Sodium 139, potassium 4, chloride is 102, CO2 30, glucose 69, BUN 9, creatinine 0.9. PLAN: Continue present management. We will follow up. Duncan Henry MD cc: [id number] TT: 10/26/2016 19:59:45 Confirmation # [id number] Dictation # [id number]
== END 2016-10-26 20:47 | disposition home or self-care (01) ==
LOC: ED 07:20 → ERH 09:21 → 2RSO 11:13
PROVIDERS: ADMIT Hospitalist; ATTEND Hospitalist
DX: I95.1 Orthostatic hypotension (principal); R55 Syncope and collapse; H81.10 Benign paroxysmal vertigo, unspecified ear; G43.909 Migraine, unspecified, not intractable, without status migrainosus; J45.20 Mild intermittent asthma, uncomplicated
CPT/HCPCS: 36415; 70450; 71020; 80053; 82550; 82553; 82948; 83735; 84100; 84484; 85025; 85378; 93005; 93306; 96360; 99285; G0378; J7040

== ENCOUNTER 2016-12-11 16:43 | Emergency (ER) | payer OTHER ==
[2016-12-11 16:44] VITALS: BMI 25.0
[2016-12-11 16:48] VITALS: PULSE 70; TEMP 99
[2016-12-11] MEDS ORDERED: Sodium Chloride 0.9% 1,000 ML IV STA (17:05)
[2016-12-11 17:38] LABS: ADD MANUAL DIFF? NO
[2016-12-11 17:50] LABS: BASO # 0.04 K/mm3 (0.0-2.0); BASO % 0.8 % (0.0-3.0); EOS # 0.2 (0.0-0.7); EOS % 3.8 % (1.5-5.0); GRAN # 3.61 (1.4-6.5); GRAN % 67.7 % (50.0-68.0); HEMATOCRIT 39.6 % (42.0-52.0); LYMPH # 0.8 (1.2-3.4); LYMPH % 14.6 % (22.0-35.0); MEAN CORPUSCULAR HEMOGLOBIN 26.4 pg (25.0-35.0); MEAN CORPUSCULAR HGB CONC 32.6 g/dl (31.0-37.0); MONO # 0.7 (0.1-0.6); MONO % 13.1 % (1.0-6.0); PLATELET COUNT 142 10^3/uL (120.0-450.0); RED CELL DISTRIBUTION WIDTH 13.8 % (11.5-14.5); WHITE BLOOD COUNT 5.3 10^3/ul (4.5-11.0)
[2016-12-11 17:51] LABS: ALB/GLOB RATIO 1.2 (1.1-1.8); ALKALINE PHOSPHATASE 60 U/L (38-133); ALT/SGPT 33 U/L (7-56); AST/SGOT 30 U/L (15-59); BILIRUBIN,TOTAL 1.9 mg/dL (0.2-1.3); BLOOD UREA NITROGEN 11 mg/dL (7-21); CARBON DIOXIDE 26 mmol/L (21-33); CHLORIDE 103 mmol/L (98-107); GFR AFRICAN-AMERICAN > 60; GLUCOSE,RANDOM 83 mg/dL (70-110); POTASSIUM 3.4 mmol/L (3.6-5.0); SODIUM 138 mmol/L (132-148); TOTAL PROTEIN 7.1 g/dL (5.8-8.3)
[2016-12-11 17:58] LABS: INR 1.05 (0.93-1.08); PARTIAL THROMBOPLASTIN TIME 27.5 Seconds (23.7-30.8)
[2016-12-11 18:14] LABS: TROPONIN I < 0.01 ng/mL
--- NOTE | 2016-12-11 18:44 | CT ---
PROCEDURE: CT HEAD WITHOUT CONTRAST. HISTORY: syncope COMPARISON: Noncontrast head CT performed 10/25/16 TECHNIQUE: Axial computed tomography images were obtained through the head/brain without intravenous contrast. Radiation dose: Total exam DLP = 774.23 mGy-cm. This CT exam was performed using one or more of the following dose reduction techniques: Automated exposure control, adjustment of the mA and/or kV according to patient size, and/or use of iterative reconstruction technique. FINDINGS: HEMORRHAGE: No intracranial hemorrhage. BRAIN: No mass effect or edema. No atrophy or chronic microvascular ischemic changes.Please note that MRI with diffusion imaging is more sensitive in the detection of acute ischemic event. VENTRICLES: No hydrocephalus. CALVARIUM: Unremarkable. PARANASAL SINUSES: Mucosal thickening of the right greater than left ethmoid air cells. MASTOID AIR CELLS: Unremarkable as visualized. No inflammatory changes. OTHER FINDINGS: None. IMPRESSION: No acute intracranial pathology identified. Mucosal thickening of the right greater than left ethmoid air cells. Correlate clinically for sinusitis.
[2016-12-11] MEDS ORDERED: Potassium Chloride 20 mEq ER Tab PO STA (19:00)
--- NOTE | 2016-12-11 19:09 | ED PDOC ---
Arrival/HPI - General Chief Complaint: Syncope Time Seen by Provider: 12/11/16 16:58 Historian: Patient - History of Present Illness Narrative History of Present Illness (Text): 12/11/16 19:09 26yo male biba for near syncopal episode. Patient states he had a near syncopal episode episode after using his albuterol inhaler this afternoon. He notes previous history of dizziness/syncope. He denies any current somatic complaint. Denies focal weakness, visual changes, nausea, vomiting, any other complaint. Past Medical History - Provider Review Nursing Documentation Reviewed: Yes - Infectious Disease Hx of Infectious Diseases: None - Pulmonary Hx Asthma: Yes (as a child) - Neurological Hx Dizziness: Yes Other/Comment: post concusion syndrom - Musculoskeletal/Rheumatological Hx Falls: Yes (loc 5 mo ago and 2 wks ago) - Psychiatric Hx Substance Use: No - Surgical History Other/Comment: oral sx extra teeth extracted from bottom front and side - Anesthesia Hx Anesthesia: No Family/Social History - Physician Review Nursing Documentation Reviewed: Yes Family/Social History: Unknown Family HX Smoking Status: Unknown If Ever Smoked Hx Alcohol Use: No Hx Substance Use: No Allergies/Home Meds Allergies/Adverse Reactions: Allergies No Known Allergies Allergy (Verified 10/12/16 09:16) Home Medications: Home Meds Medication Instructions Recorded Confirmed Albuterol HFA [Ventolin HFA 90 0.09 mg IH PRN PRN 12/11/16 12/11/16 mcg/actuation (8 g)] Meclizine [Meclizine*] 25 mg PO PRN PRN 12/11/16 12/11/16 Review of Systems - Physician Review All systems were reviewed & negative as marked: Yes - Review of Systems Constitutional: Normal Eyes: Normal ENT: Normal Respiratory: Normal Cardiovascular: Normal Gastrointestinal: Normal Genitourinary Male: Normal Musculoskeletal: Normal Skin: Normal Neurological: Other (syncope) Endocrine: Normal Hemo/Lymphatic: Normal Psychiatric: Normal Physical Exam Vital Signs Reviewed: Yes Vital Signs Temp Pulse Resp BP Pulse Ox 12/11/16 18:44 70 18 128/72 100 12/11/16 16:47 99.0 F 70 20 130/67 98 Temperature: Afebrile Blood Pressure: Normal Pulse: Regular Respiratory Rate: Normal Appearance: Positive for: Well-Appearing, Non-Toxic, Comfortable Pain Distress: None Mental Status: Positive for: Alert and Oriented X 3 - Systems Exam Head: Present: Atraumatic, Normocephalic Pupils: Present: PERRL Extroacular Muscles: Present: EOMI Conjunctiva: Present: Normal Mouth: Present: Moist Mucous Membranes Neck: Present: Normal Range of Motion Respiratory/Chest: Present: Clear to Auscultation, Good Air Exchange. No: Respiratory Distress, Accessory Muscle Use Cardiovascular: Present: Regular Rate and Rhythm, Normal S1, S2. No: Murmurs Abdomen: Present: Normal Bowel Sounds. No: Tenderness, Distention, Peritoneal Signs Back: Present: Normal Inspection Upper Extremity: Present: Normal Inspection. No: Cyanosis, Edema Lower Extremity: Present: Normal Inspection. No: Edema Neurological: Present: GCS=15, CN II-XII Intact, Speech Normal, Motor Func Grossly Intact, Normal Sensory Function, Normal Cerebellar Funct, Norm Deep Tendon Reflexes, Gait Normal, Memory Normal, Normal 2Pt Descrimination, Other ( No focal neurological deficit) Skin: Present: Warm, Dry, Normal Color. No: Rashes Psychiatric: Present: Alert, Oriented x 3, Normal Insight, Normal Concentration Medical Decision Making ED Course and Treatment: 12/11/16 21:08 PT presented for stated history. He was neurological intact and in comfortable in ED. Lab was unremarkable. Head CT was negative. Pt have Echo in September for same complaint. He was advised to f/u with Neuro. Advised TRT ED for any new or worsening symptoms. - Lab Interpretations Lab Results: 12/11/16 17:30 12/11/16 17:30 Lab Results 12/11/16 17:30: Sodium 138, Potassium 3.4 L, Chloride 103, Carbon Dioxide 26, Anion Gap 12, BUN 11, Creatinine 1.0, Est GFR ( Amer) > 60, Est GFR (Non- Af Amer) > 60, Random Glucose 83, Calcium 9.0, Total Bilirubin 1.9 H, AST 30, ALT 33, Alkaline Phosphatase 60, Lactate Dehydrogenase 341, Total Creatine Kinase 262 H, CK-MB (CK-2) 1.2, CK-MB (CK-2) % Cancelled, Troponin I < 0.01, Total Protein 7.1, Albumin 3.9, Globulin 3.2, Albumin/Globulin Ratio 1.2 12/11/16 17:30: PT 11.3, INR 1.05, APTT 27.5 12/11/16 17:30: WBC 5.3, RBC 4.89, Hgb 12.9 L, Hct 39.6 L, MCV 81.0, MCH 26.4, MCHC 32.6, RDW 13.8, Plt Count 142, MPV 11.0, Gran % 67.7, Lymph % (Auto) 14.6 L , [place] % (Auto) 13.1 H, Eos % (Auto) 3.8, Baso % (Auto) 0.8, Gran # 3.61, Lymph # 0.8 L, [place] # 0.7 H, Eos # 0.2, Baso # 0.04 - RAD Interpretation Radiology Orders: 12/11/16 17:13 HEAD W/O CONTRAST [CT] Stat - Medication Orders Current Medication Orders: Discontinued Medications Sodium Chloride (Sodium Chloride 0.9%) 1,000 mls @ 999 mls/hr IV .Q1H1M STA Stop: 12/11/16 18:05 Last Admin: 12/11/16 17:37 Dose: 999 mls/hr Potassium Chloride (K-Dur 20 Meq Er Tab) 20 meq PO STAT STA Stop: 12/11/16 19:01 Disposition/Present on Arrival - Present on Arrival Any Indicators Present on Arrival: No History of DVT/PE: No History of Uncontrolled Diabetes: No Urinary Catheter: No History of Decub. Ulcer: No History Surgical Site Infection Following: None - Disposition Have Diagnosis and Disposition been Completed?: Yes Diagnosis: Syncope Disposition: HOME/ ROUTINE Disposition Time: 19:15 Patient Plan: Discharge Condition: STABLE Discharge Instructions (ExitCare): Syncope (ED) Additional Instructions: Follow up with a neurologist/PMD Return to ED for any new or worsening symptoms Referrals: PCP,NO [Primary Care Provider] - Follow up with primary Duncan Henry MD [Staff Provider] - Follow up with primary
[2016-12-11 19:48] VITALS: BP 128/72; RESP 18; O2SAT 100
--- NOTE | 2016-12-11 22:48 | CARD ---
APPROVED REPORT EKG Measurement Heart [id number] <Conclusion> Normal sinus rhythm RSR' or QR pattern in V1 suggests right ventricular conduction delay Borderline ECG
== END 2016-12-11 19:15 | disposition home or self-care (01) ==
LOC: ED 16:43
DX: R55 Syncope and collapse (principal)
CPT/HCPCS: 70450; 80053; 82550; 82553; 83615; 84484; 85025; 85610; 85730; 93005; 96360; 99285; J7040

== ENCOUNTER 2017-03-02 03:57 | Emergency (ER) | payer OTHER ==
[2017-03-02 03:58] VITALS: BMI 25.0
[2017-03-02 04:08] VITALS: TEMP 98.2
[2017-03-02] MEDS ORDERED: methylPREDNISolone 500 MG in Sodium Chloride 0.9% 100 ML IVPB STA (04:14)
[2017-03-02] MEDS ORDERED: Albuterol-Ipratrop 3 mg / 0.5 (3 ml) UD IH STA (04:14)
[2017-03-02] MEDS ORDERED: Sodium Chloride 0.9% 1,000 ML IV STA (04:14)
--- NOTE | 2017-03-02 04:18 | ED PDOC ---
Arrival/HPI - General Chief Complaint: Dizziness/Lightheaded Time Seen by Provider: 03/02/17 04:10 Historian: Patient - History of Present Illness Narrative History of Present Illness (Text): 03/02/17 04:15 26 year old male, whose past medical history includes asthma, presents to the emergency department complaining of a cold that began two weeks ago. He states that his asthma has been bothering while having this cold and has been using his inhaler. Patient also reports left sided migraines. Patient denies any fever , chills, chest pain, shortness of breath, nausea, vomiting, diarrhea, urinary symptoms, back pain, neck pain, or any other complaints. Time/Duration: > week (2 weeks) Symptom Course: Unchanged Activities at Onset: Light Context: Home Past Medical History - Provider Review Nursing Documentation Reviewed: Yes - Infectious Disease Hx of Infectious Diseases: None - Pulmonary Hx Asthma: Yes (as a child) - Neurological Hx Dizziness: Yes Other/Comment: post concusion syndrom - Musculoskeletal/Rheumatological Hx Falls: Yes (loc 5 mo ago and 2 wks ago) - Psychiatric Hx Substance Use: No - Surgical History Other/Comment: oral sx extra teeth extracted from bottom front and side - Anesthesia Hx Anesthesia: No Family/Social History - Physician Review Nursing Documentation Reviewed: Yes Family/Social History: No Known Family HX Smoking Status: Unknown If Ever Smoked Hx Alcohol Use: No Hx Substance Use: No Allergies/Home Meds Allergies/Adverse Reactions: Allergies No Known Allergies Allergy (Verified 10/12/16 09:16) Review of Systems - Physician Review All systems were reviewed & negative as marked: Yes - Review of Systems Constitutional: absent: Fevers Respiratory: Other (Cold associated with Asthma). absent: SOB Cardiovascular: absent: Chest Pain Gastrointestinal: absent: Diarrhea, Nausea, Vomiting Genitourinary Male: absent: Dysuria, Frequency, Hematuria Musculoskeletal: absent: Back Pain, Neck Pain Neurological: Headache (left sided migraine pains) Physical Exam - Physical Exam Narrative Physical Exam (Text): Constitutional: No acute distress. Head: Normocephalic. Atraumatic. Eyes: PERRL. Positive for Photophobia. ENT: Moist mucous membranes. Neck: Supple. No neck Stiffness. Cardiovascular: Regular rate. Chest: No tenderness. Respiratory: Decreased breath sounds. No wheezing. GI: Soft. Nontender. Nondistended. Back: No CVA tenderness. Musculoskeletal: No tenderness or swelling of extremities. Skin: No rash. Neurologic: Alert, no focal deficit. Vital Signs Reviewed: Yes Vital Signs Temp Pulse Resp BP Pulse Ox 03/02/17 04:07 98.2 F 76 18 124/76 99 03/02/17 04:06 97.4 F L 72 17 122/78 98 Temperature: Afebrile Blood Pressure: Normal Pulse: Regular Respiratory Rate: Normal Appearance: Positive for: Well-Appearing, Non-Toxic, Comfortable Pain Distress: None Mental Status: Positive for: Alert and Oriented X 3 Medical Decision Making ED Course and Treatment: 03/02/17 04:15 Impression: 26 year old male present complaining of a cold that began two weeks ago triggering his asthma. Associated symptoms include left sided migraines. Plan: -- CXR Two Views -- Duoneb -- Reglan -- SOLU-Medrol -- IV Fluids -- Toradol -- Tylenol -- Reassess and disposition Progress Notes: 03/02/17 05:28 CXR Impression: As read by me, no infiltrate consolidation. 03/02/17 05:36 Patient states he feels better and would like to go home. F/u PMD, return to ED for worsening pain, dyspnea, fever, or any other problem. - Lab Interpretations I have reviewed the lab results: Yes - RAD Interpretation Radiology Orders: 03/02/17 04:15 CHEST TWO VIEWS (PA/LAT) [RAD] Stat - Medication Orders Current Medication Orders: Discontinued Medications Acetaminophen (Tylenol 325mg Tab) 975 mg PO STAT STA Stop: 03/02/17 04:15 Last Admin: 03/02/17 04:33 Dose: 975 mg Albuterol/Ipratropium (Duoneb 3 Mg/0.5 Mg (3 Ml) Ud) 3 ml IH Q15M STA Stop: 03/02/17 04:15 Last Admin: 03/02/17 04:30 Dose: 3 ml Methylprednisolone 500 mg/ (Sodium Chloride) 100 mls @ 200 mls/hr IVPB STAT STA Stop: 03/02/17 04:15 Last Admin: 03/02/17 05:01 Dose: 200 mls/hr Sodium Chloride (Sodium Chloride 0.9%) 1,000 mls @ 999 mls/hr IV .Q1H1M STA Stop: 03/02/17 05:14 Last Admin: 03/02/17 04:32 Dose: 999 mls/hr Ketorolac Tromethamine (Toradol) 30 mg IVP STAT STA Stop: 03/02/17 04:15 Last Admin: 03/02/17 04:31 Dose: 30 mg Metoclopramide HCl (Reglan) 10 mg IVP STAT STA Stop: 03/02/17 04:15 Last Admin: 03/02/17 04:32 Dose: 10 mg - Alyssaibe Statement The provider has reviewed the documentation as recorded by the Priscila Eduardo All medical record entries made by the Priscila were at my direction and personally dictated by me. I have reviewed the chart and agree that the record accurately reflects my personal performance of the history, physical exam, medical decision making, and the department course for this patient. I have also personally directed, reviewed, and agree with the discharge instructions and disposition. Disposition/Present on Arrival - Present on Arrival Any Indicators Present on Arrival: No History of DVT/PE: No History of Uncontrolled Diabetes: No Urinary Catheter: No History of Decub. Ulcer: No History Surgical Site Infection Following: None - Disposition Have Diagnosis and Disposition been Completed?: Yes Diagnosis: Headache, Asthma attack Disposition: HOME/ ROUTINE Disposition Time: 05:36 Patient Plan: Discharge Condition: STABLE Discharge Instructions (ExitCare): Asthma (ED), Migraine Headache (ED) Prescriptions: Albuterol HFA [Ventolin HFA 90 mcg/actuation (8 g)] 2 puff IH Q6 #1 inhaler Prednisone [Deltasone] 3 tab PO DAILY #12 tablet Forms: [employer] (Serbian)
[2017-03-02 06:15] VITALS: BP 130/53; PULSE 81; RESP 16; O2SAT 100
--- NOTE | 2017-03-02 08:24 | RAD ---
HISTORY: cough COMPARISON: Chest x-ray performed 10/25/16 TECHNIQUE: Chest PA and lateral FINDINGS: LUNGS: No focal consolidation. PLEURA: No significant pleural effusion identified. No definite pneumothorax . CARDIOVASCULAR: Heart size appears within normal limits. OSSEOUS STRUCTURES: No acute osseous abnormality identified. VISUALIZED UPPER ABDOMEN: Unremarkable. OTHER FINDINGS: None. IMPRESSION: No focal consolidation, significant pleural effusion, or definite pneumothorax identified.
== END 2017-03-02 06:30 | disposition home or self-care (01) ==
LOC: ED 03:57
DX: R51 Headache (principal); J45.909 Unspecified asthma, uncomplicated
CPT/HCPCS: 71020; 94640; 96374; 96375; 99285; J1885; J2765; J2930; J7040

== ENCOUNTER 2017-03-10 14:40 | Emergency (ER) | payer OTHER ==
[2017-03-10 14:59] VITALS: O2SAT 100
[2017-03-10 15:02] VITALS: BMI 23.7
--- NOTE | 2017-03-10 15:26 | ED PDOC ---
Arrival/HPI - General Chief Complaint: Syncope Time Seen by Provider: 03/10/17 14:57 Historian: Patient - History of Present Illness Narrative History of Present Illness (Text): 03/10/17 15:14 A 26 year old male, whose past medical history includes asthma, presents to the emergency department via EMS after syncope at work immediately prior to arrival. He notes that prior to syncope he felt left sided chest tightness. No chest tightness now. The patient reports he has been having chronic migraines and for the last 6-7 months he has syncope at least once per month. He has not had much fluid intake today. The patient denies any chest pain, palpitations, fever, abdominal pain, nausea, vomiting, hematuria, dysuria, GI issues, head trauma, head injury, or any other complaints at this time. Time/Duration: Prior to Arrival Symptom Course: Improving Activities at Onset: Light Context: Work Past Medical History - Provider Review Nursing Documentation Reviewed: Yes - Infectious Disease Hx of Infectious Diseases: None - Cardiac Hx Cardiac Disorders: No - Pulmonary Hx Respiratory Disorders: Yes Hx Asthma: Yes - Neurological Hx Neurological Disorder: Yes Hx Dizziness: Yes Other/Comment: "post concusion syndrome" - HEENT Hx HEENT Disorder: No - Renal Hx Renal Disorder: No - Endocrine/Metabolic Hx Endocrine Disorders: No - Hematological/Oncological Hx Blood Disorders: No - Integumentary Hx Dermatological Disorder: No - Musculoskeletal/Rheumatological Hx Musculoskeletal Disorders: Yes Hx Falls: Yes (loc 5 mo ago and 2 wks ago) - Gastrointestinal Hx Gastrointestinal Disorders: No - Genitourinary/Gynecological Hx Genitourinary Disorders: No - Psychiatric Hx Psychophysiologic Disorder: No Hx Substance Use: No - Surgical History Other/Comment: oral sx extra teeth extracted from bottom front and side - Anesthesia Hx Anesthesia: No Family/Social History - Physician Review Nursing Documentation Reviewed: Yes Family/Social History: Unknown Family HX Smoking Status: Never Smoked Hx Alcohol Use: No Hx Substance Use: No Allergies/Home Meds Allergies/Adverse Reactions: Allergies No Known Allergies Allergy (Verified 03/10/17 14:43) Home Medications: Home Meds Medication Instructions Recorded Confirmed Albuterol HFA [Ventolin HFA 90 2 puff IH PRN PRN 03/10/17 03/10/17 mcg/actuation (8 g)] Review of Systems - Physician Review All systems were reviewed & negative as marked: Yes - Review of Systems Constitutional: absent: Fevers Respiratory: absent: SOB Cardiovascular: Other (Chest tightness ). absent: Chest Pain, Palpitations Gastrointestinal: absent: Abdominal Pain, Nausea, Vomiting, Hematochezia, Hematemesis Genitourinary Male: Normal Neurological: Other (syncope ) Physical Exam Vital Signs Reviewed: Yes Vital Signs Temp Pulse Resp BP Pulse Ox 03/10/17 18:41 98 F 85 20 121/71 100 03/10/17 14:58 97.9 F 57 L 16 132/65 100 Temperature: Afebrile Blood Pressure: Normal Pulse: Bradycardic Respiratory Rate: Normal Appearance: Positive for: Well-Appearing, Non-Toxic, Comfortable Pain Distress: None Mental Status: Positive for: Alert and Oriented X 3 - Systems Exam Head: Present: Atraumatic, Normocephalic Pupils: Present: PERRL Extroacular Muscles: Present: EOMI Conjunctiva: Present: Normal Mouth: Present: Moist Mucous Membranes Neck: Present: Normal Range of Motion Respiratory/Chest: Present: Clear to Auscultation, Good Air Exchange. No: Respiratory Distress, Accessory Muscle Use Cardiovascular: Present: Regular Rate and Rhythm, Normal S1, S2. No: Murmurs Abdomen: Present: Normal Bowel Sounds. No: Tenderness, Distention, Peritoneal Signs Back: Present: Normal Inspection Upper Extremity: Present: Normal Inspection. No: Cyanosis, Edema Lower Extremity: Present: Normal Inspection. No: Edema Neurological: Present: GCS=15, CN II-XII Intact, Speech Normal Skin: Present: Warm, Dry, Normal Color. No: Rashes Psychiatric: Present: Alert, Oriented x 3, Normal Insight, Normal Concentration Medical Decision Making ED Course and Treatment: 03/10/17 15:28 Impression: A 26 year old male who syncope Differential Diagnosis included but are not limited to: Dehydration vs Arrhythmia Plan: -- EKG -- Labs -- Chest X-Ray -- Saline Lock -- Fingerstick -- Urinalysis -- Reassess and disposition Prior Visits: Notes and results from previous visits were reviewed. The patient was last seen in the emergency department on 03/02/17 for dizziness. The patient was discharged home. Progress Notes: 03/10/17 15:30 EKG: Ordered, reviewed, and independently interpreted the EKG. Rate : 59 BPM Rhythm : Sinus Bradycardia Interpretation : No ST-segment elevations or depressions, no T-wave inversions, normal intervals. Comparison : No previous EKG for comparison. Patient was observed in the ED without any complaints. He drank fluids in the ED with no vomiting. He is feeling much better. Patient will be discharged home with the understanding that he needs to follow up with referred physician and a handtools repairer. He will make sure to make an appointment. He was advised and understands to return to the ED if symptoms worsen or any other concern. - Lab Interpretations Lab Results: 03/10/17 15:50 03/10/17 15:50 Lab Results 03/10/17 16:15: Urine Color Yellow, Urine Appearance Clear, Urine pH 6.0, Ur Specific [place] 1.020, Urine Protein Negative, Urine Glucose (UA) Negative, Urine Ketones Negative, Urine Blood Negative, Urine Nitrate Negative, Urine Bilirubin Negative, Urine Urobilinogen 0.2, Ur Leukocyte Esterase Negative 03/10/17 15:53: POC Glucose (mg/dL) 84 03/10/17 15:50: Sodium 137, Potassium 4.4, Chloride 101, Carbon Dioxide 31, Anion Gap 9 L, BUN 14, Creatinine 0.9, Est GFR ( Amer) > 60, Est GFR (Non -Af Amer) > 60, Random Glucose 80, Calcium 9.3, Magnesium 2.0, Total Bilirubin 1.0, AST 31, ALT 30, Alkaline Phosphatase 91, Lactate Dehydrogenase 392, Total Creatine Kinase 108, Troponin I < 0.01, Total Protein 7.3, Albumin 4.3, Globulin 3.1, Albumin/Globulin Ratio 1.4 03/10/17 15:50: WBC 5.4, RBC 5.14, Hgb 13.5 L, Hct 41.5 L, MCV 80.7, MCH 26.3, MCHC 32.5, RDW 14.2, Plt Count 178, MPV 10.8, Gran % 60.8, Lymph % (Auto) 24.4, [place] % (Auto) 10.8 H, Eos % (Auto) 3.4, Baso % (Auto) 0.6, Gran # 3.27, Lymph # 1.3, [place] # 0.6, Eos # 0.2, Baso # 0.03 I have reviewed the lab results: Yes Interpretation: All labs normal - RAD Interpretation Radiology Orders: 03/10/17 15:19 CHEST PORTABLE [RAD] Stat CXR normal. Furnace Reliner: ED Physician - Scribe Statement The provider has reviewed the documentation as recorded by the Priscila Tatum Provider Scribe Attestation: All medical record entries made by the Scribe were at my direction and personally dictated by me. I have reviewed the chart and agree that the record accurately reflects my personal performance of the history, physical exam, medical decision making, and the department course for this patient. I have also personally directed, reviewed, and agree with the discharge instructions and disposition. Disposition/Present on Arrival - Present on Arrival Any Indicators Present on Arrival: No History of DVT/PE: No History of Uncontrolled Diabetes: No Urinary Catheter: No History of Decub. Ulcer: No History Surgical Site Infection Following: None - Disposition Have Diagnosis and Disposition been Completed?: Yes Diagnosis: Syncope Disposition: HOME/ ROUTINE Disposition Time: 19:00 Patient Plan: Discharge Condition: IMPROVED Discharge Instructions (ExitCare): Syncope (ED) Additional Instructions: Mr Markham thank you for letting us take care of you today. Your provider was Dr. Hoover. You were treated for Syncope. The emergency medical care you received today was directed at your acute symptoms. If you were prescribed any medication, please fill it and take as directed. It may take several days for your symptoms to resolve. Return to the Emergency Department if your symptoms worsen, do not improve, or if you have any other problems. Please contact your doctor or call one of the physicians/clinics you have been referred to that are listed on the Patient Visit Information form that is included in your discharge packet. Bring any paperwork you were given at discharge with you along with any medications you are taking to your follow up visit. Our treatment cannot replace ongoing medical care by a primary care provider (PCP) outside of the emergency department. Thank you for allowing the [facility] team to be part of your care today. If you had an X-Ray or CT scan: A Radiologist will review the ED reading if any change in treatment is needed we will contact you. If you had a blood, urine, or wound culture: It will take several days for the results, if any change in treatment is needed we will contact you. If you had an STI test: It will take 48 hours for the results. Please call after 1 week if you have not heard back. Referrals: Adlyfe Ashley [Outside] - [place] up with primary [facility] [place] [facility] [place] [place] - Follow up with primary Yunier Lucero DO [Staff Provider] - Follow up with primary Momo Chacon MD [Staff Provider] - Follow up with primary Forms: [employer] (Serbian), WORK NOTE
[2017-03-10 16:02] LABS: BASO # 0.03 K/mm3 (0.0-2.0); BASO % 0.6 % (0.0-3.0); EOS # 0.2 (0.0-0.7); EOS % 3.4 % (1.5-5.0); GRAN # 3.27 (1.4-6.5); GRAN % 60.8 % (50.0-68.0); HEMATOCRIT 41.5 % (42.0-52.0); LYMPH # 1.3 (1.2-3.4); LYMPH % 24.4 % (22.0-35.0); MEAN CELL VOLUME 80.7 fl (80.0-105.0); MEAN CORPUSCULAR HEMOGLOBIN 26.3 pg (25.0-35.0); MEAN CORPUSCULAR HGB CONC 32.5 g/dl (31.0-37.0); MEAN PLATELET VOLUME 10.8 fl (7.0-11.0); MONO # 0.6 (0.1-0.6); MONO % 10.8 % (1.0-6.0); RED CELL DISTRIBUTION WIDTH 14.2 % (11.5-14.5); WHITE BLOOD COUNT 5.4 10^3/ul (4.5-11.0)
[2017-03-10 16:15] LABS: ALB/GLOB RATIO 1.4 (1.1-1.8); ALKALINE PHOSPHATASE 91 U/L (38-126); ALT/SGPT 30 U/L (7-56); AST/SGOT 31 U/L (17-59); BLOOD UREA NITROGEN 14 mg/dL (7-21); CALCIUM 9.3 mg/dL (8.4-10.5); CARBON DIOXIDE 31 mmol/L (21-33); CHLORIDE 101 mmol/L (98-107); GFR AFRICAN-AMERICAN > 60; GLUCOSE,RANDOM 80 mg/dL (70-110); POTASSIUM 4.4 mmol/L (3.6-5.0); SODIUM 137 mmol/L (132-148); TOTAL PROTEIN 7.3 g/dL (5.8-8.3)
[2017-03-10 16:40] LABS: URINE BILIRUBIN NEGATIVE (NEGATIVE); URINE BLOOD NEGATIVE (NEGATIVE); URINE GLUCOSE (UA) NEGATIVE (NEGATIVE); URINE KETONE NEGATIVE (NEGATIVE); URINE LEUKOCYTE ESTERASE NEGATIVE Leu/uL (NEGATIVE); URINE PROTEIN NEGATIVE mg/dL (<30 mg/dL); URINE UROBILINOGEN 0.2 E.U./dL (<1 E.U./dL)
--- NOTE | 2017-03-10 16:43 | RAD ---
HISTORY: syncope COMPARISON: 03/02/2017. FINDINGS: LUNGS: No active pulmonary disease. PLEURA: No significant pleural effusion identified, no pneumothorax apparent. CARDIOVASCULAR: Normal. OSSEOUS STRUCTURES: No significant abnormalities. VISUALIZED UPPER ABDOMEN: Normal. OTHER FINDINGS: None. IMPRESSION: No active disease. No significant interval change compared to the prior examination(s). Concordant results with the preliminary interpretation rendered by the emergency department physician procedure.
[2017-03-10 16:49] LABS: URINE APPEARANCE CLEAR (CLEAR); URINE COLOR YELLOW (YELLOW)
[2017-03-10 16:53] LABS: TROPONIN I < 0.01 ng/mL
[2017-03-10 19:27] VITALS: BP 121/71; PULSE 85; RESP 20; TEMP 98
--- NOTE | 2017-03-11 17:21 | CARD ---
APPROVED REPORT EKG Measurement Heart [id number] <Conclusion> Sinus bradycardia Otherwise normal ECG
== END 2017-03-10 19:28 | disposition home or self-care (01) ==
LOC: ED 14:40
DX: R55 Syncope and collapse (principal)

== ENCOUNTER 2017-07-06 22:55 | Emergency (ER) | payer OTHER ==
[2017-07-06 22:57] VITALS: BMI 26.1
[2017-07-06 23:00] VITALS: TEMP 98.1; O2SAT 100
[2017-07-06] MEDS ORDERED: Albuterol-Ipratrop 3 mg / 0.5 (3 ml) UD IH STA (23:18)
--- NOTE | 2017-07-07 01:03 | ED PDOC ---
Arrival/HPI - General Chief Complaint: Respiratory Distress Time Seen by Provider: 07/06/17 23:18 Historian: Patient - History of Present Illness Narrative History of Present Illness (Text): 07/07/17 01:01 26-year-old male with history of asthma presents today brought in by ambulance and ALS after asthma exacerbation. In the field patient was given 2 DuoNeb's and Solu-Medrol 125mg IV. Patient states he's been sick with a cold for a few days. Patient complaining of nasal congestion and sore throat. Patient states he 's had dry cough. Patient states he's been using his nebulizer at home for cough and asthma. Patient states he's noticed wheezing and then today while at work he had worsening shortness of breath without improvement using the nebulizer at work. Patient presents to the emergency room after 2 DuoNeb and Solu-Medrol stating that he is feeling much better. Time/Duration: Other (3-4 days) Symptom Course: Intermittent, Worsening Quality: Other (no pain) Past Medical History - Provider Review Nursing Documentation Reviewed: Yes - Travel History Have you recently traveled outside [place] w/in the past 3 mons?: No - Infectious Disease Hx of Infectious Diseases: None - Tetanus Immunization Tetanus Immunization: Unknown - Cardiac Hx Cardiac Disorders: No - Pulmonary Hx Respiratory Disorders: Yes Hx Asthma: Yes - Neurological Hx Neurological Disorder: Yes Hx Dizziness: Yes Other/Comment: "post concusion syndrome" - HEENT Hx HEENT Disorder: No - Renal Hx Renal Disorder: No - Endocrine/Metabolic Hx Endocrine Disorders: No - Hematological/Oncological Hx Blood Disorders: No - Integumentary Hx Dermatological Disorder: No - Musculoskeletal/Rheumatological Hx Musculoskeletal Disorders: Yes Hx Falls: Yes (loc 5 mo ago and 2 wks ago) - Gastrointestinal Hx Gastrointestinal Disorders: No - Genitourinary/Gynecological Hx Genitourinary Disorders: No - Psychiatric Hx Psychophysiologic Disorder: No Hx Substance Use: No - Surgical History Other/Comment: oral sx extra teeth extracted from bottom front and side - Anesthesia Hx Anesthesia: No Family/Social History - Physician Review Nursing Documentation Reviewed: Yes Family/Social History: Unknown Family HX Smoking Status: Never Smoked Hx Alcohol Use: No Hx Substance Use: No Allergies/Home Meds Allergies/Adverse Reactions: Allergies shellfish derived Allergy (Verified 07/06/17 22:57) RASH Home Medications: Home Meds Medication Instructions Recorded Confirmed Albuterol HFA [Ventolin HFA 90 2 puff IH PRN PRN 03/10/17 07/06/17 mcg/actuation (8 g)] Review of Systems - Review of Systems Constitutional: absent: Fatigue, Fevers Eyes: absent: Vision Changes, Photophobia, Eye Pain ENT: Sinus Congestion Respiratory: SOB, Cough, Wheezing Cardiovascular: absent: Chest Pain, Palpitations Gastrointestinal: absent: Abdominal Pain, Nausea, Vomiting Genitourinary Male: absent: Dysuria Musculoskeletal: absent: Arthralgias Skin: absent: Rash, Pruritis Neurological: absent: Headache, Dizziness Psychiatric: absent: Anxiety, Depression, Suicidal Ideation Physical Exam Vital Signs Reviewed: Yes Vital Signs Temp Pulse Resp BP Pulse Ox 07/06/17 23:00 98.1 F 73 18 133/65 100 Temperature: Afebrile Blood Pressure: Normal Pulse: Regular Respiratory Rate: Normal Appearance: Positive for: Well-Appearing, Non-Toxic, Comfortable Pain Distress: None Mental Status: Positive for: Alert and Oriented X 3 - Systems Exam Head: Present: Atraumatic Pupils: Present: PERRL Extroacular Muscles: Present: EOMI Conjunctiva: Present: Normal Ears: Present: Normal, NORMAL TM Mouth: Present: Moist Mucous Membranes Pharnyx: Present: Normal. No: ERYTHEMA, EXUDATE, TONSILS ENLARGED, Peritonsilar Swelling, Uvular Deviation, Muffled/Hoarse Voice Nose (External): Present: Atraumatic Nose (Internal): Present: Normal Inspection Neck: Present: Normal Range of Motion, Trachea Midline. No: Meningeal Signs, Lymphadenopathy Respiratory/Chest: Present: Good Air Exchange, Wheezes (slight wheezing noted bilaterally). No: Respiratory Distress, Accessory Muscle Use, Tachypneic, Tender to Palpation Cardiovascular: Present: Regular Rate and Rhythm Abdomen: No: Tenderness, Distention, Rebound, Guarding Back: Present: Normal Inspection Upper Extremity: Present: Normal ROM Lower Extremity: Present: Normal ROM. No: Edema Neurological: Present: GCS=15, Speech Normal Skin: Present: Warm, Dry, Normal Color. No: Rashes Psychiatric: Present: Alert, Oriented x 3 Medical Decision Making ED Course and Treatment: 07/07/17 01:09 Patient is nontoxic well-appearing in no distress. Vital signs are stable. Patient with a history of asthma brought in by ambulance for asthma exacerbation. In the field patient received Solu-Medrol 125 IV and 2 DuoNebs Patient with slight wheezing bilaterally. Additional DuoNeb ordered Rapid flu negative Patient reassessment: Patient feeling better after medications. Vital signs are stable. Lungs are clear to auscultation bilaterally. We'll discharge the patient home with prednisone and Zithromax. I advised follow up with primary care physician within the next 2 days. I advised increase fluids and return if symptoms worsen persist or if new symptoms develop. Patient verbalizes understanding of discharge instructions and need for immediate followup. all aspects of this case were discussed the attending of record. IMPRESSION; asthma exacerbation Tylenol every 4 hours as needed for fever reduction Zithromax one tablet once daily x4 days Prednisone daily 4 days Albuterol nebulizer 3 times daily as needed for cough/asthma Increase fluids Followup with primary care physician the next 2 days Return if symptoms worsen persist or if new symptoms develop - Lab Interpretations Lab Results: Lab Results 07/06/17 23:10: Influenza Typ A,B (EIA) Negative for flu a/b - Medication Orders Current Medication Orders: Azithromycin (Zithromax) 500 mg PO STAT STA PRN Reason: Protocol Stop: 07/07/17 00:55 Discontinued Medications Albuterol/Ipratropium (Duoneb 3 Mg/0.5 Mg (3 Ml) Ud) 3 ml IH STAT STA Stop: 07/06/17 23:19 Last Admin: 07/06/17 23:43 Dose: 3 ml Disposition/Present on Arrival - Present on Arrival Any Indicators Present on Arrival: No History of DVT/PE: No History of Uncontrolled Diabetes: No Urinary Catheter: No History of Decub. Ulcer: No History Surgical Site Infection Following: None - Disposition Have Diagnosis and Disposition been Completed?: Yes Diagnosis: Asthma exacerbation, Cough Disposition: HOME/ ROUTINE Disposition Time: 00:59 Patient Plan: Discharge Patient Problems: Current Active Problems Problem Status Onset Asthma exacerbation Acute Cough Acute Condition: GOOD Discharge Instructions (ExitCare): Asthma (ED) Additional Instructions: Tylenol every 4 hours as needed for fever reduction Zithromax one tablet once daily x4 days Prednisone daily 4 days Albuterol nebulizer 3 times daily as needed for cough/asthma Increase fluids Followup with primary care physician the next 2 days Return if symptoms worsen persist or if new symptoms develop Prescriptions: Azithromycin [Zithromax] 250 mg PO DAILY #4 tab predniSONE [predniSONE Tab] 3 tab PO DAILY #12 tab Referrals: Gael Jarvis MD [Primary Care Provider] - Follow up with primary Forms: [employer] (Andorran), WORK NOTE
[2017-07-07 01:06] VITALS: BP 126/62; PULSE 76; RESP 12
== END 2017-07-07 01:13 | disposition home or self-care (01) ==
LOC: ED 22:55
DX: J45.901 Unspecified asthma with (acute) exacerbation (principal); R05 Cough

== ENCOUNTER 2017-09-15 12:14 | Emergency (ER) | payer OTHER ==
[2017-09-15 12:26] VITALS: BMI 23.6
[2017-09-15 12:38] VITALS: RESP 18; TEMP 97.4; O2SAT 98
[2017-09-15] MEDS ORDERED: Sodium Chloride 0.9% 1,000 ML IV STA (12:45)
[2017-09-15] MEDS ORDERED: Magnesium Sulfate 2 GM in Sodium Chloride 0.9% 100 ML IVPB ONE (12:46)
[2017-09-15] MEDS ORDERED: Apap-Butalbital-Caffeine 325-50-40mg Tab PO ONE (12:47)
--- NOTE | 2017-09-15 12:55 | ED PDOC ---
Arrival/HPI - General Chief Complaint: Headache Time Seen by Provider: 09/15/17 12:44 Historian: Patient - History of Present Illness Narrative History of Present Illness (Text): 09/15/17 12:51 pt p/w + sudden onset/since this morning (8am) left sided severe headache, consistent with his prior hx of migraine headaches; pt states pain is severe at 10/10; + light sensitive, + nausea, + vomiting; + fatigue/malaise; no chills/ sweats, no fever, no cp/sob/palpitations, no abd pain, no numbness/tingling, no focal weakness, no urinary/bowel changes; pt did drink alcohol yesterday x 2 drinks; pt states no fall/trauma/sick contact, no travel; pt states he has frequent headaches, with migraine/headache attacks requiring hospital visits ~ 6 -7 times yearly; pt has not been able to see neurologists; pt was also prescribed Topamax before but unable to take them due to insurance issues; pt states no facial numbness/tingling, no vision changes, no neck pain; no rashes; no sore throat; pt denied other complaints pt is here for further eval pt's usual migraine/headache are left sided/frontal, + light sensitive, + occasional n/v, NO auras pt is right hand dominate PCP: Gael Jarvis Time/Duration: Prior to Arrival Symptom Onset: Sudden Symptom Course: Worsening Quality: Stabbing Severity Level: 10, Severe Activities at Onset: Rest, Light Context: Home Past Medical History - Provider Review Nursing Documentation Reviewed: Yes - Travel History Have you recently traveled outside [place] w/in the past 3 mons?: No - Past History Past History: No Previous - Infectious Disease Hx of Infectious Diseases: None - Tetanus Immunization Tetanus Immunization: Unknown - Reproductive Currently Lactating: No - Cardiac Hx Cardiac Disorders: No - Pulmonary Hx Respiratory Disorders: Yes Hx Asthma: Yes - Neurological Hx Neurological Disorder: Yes Hx Dizziness: Yes Other/Comment: "post concusion syndrome" - HEENT Hx HEENT Disorder: No - Renal Hx Renal Disorder: No - Endocrine/Metabolic Hx Endocrine Disorders: No - Hematological/Oncological Hx Blood Disorders: No - Integumentary Hx Dermatological Disorder: No - Musculoskeletal/Rheumatological Hx Musculoskeletal Disorders: Yes Hx Falls: Yes (loc 5 mo ago and 2 wks ago) - Gastrointestinal Hx Gastrointestinal Disorders: No - Genitourinary/Gynecological Hx Genitourinary Disorders: No - Psychiatric Hx Psychophysiologic Disorder: No Hx Substance Use: No - Surgical History Other/Comment: oral sx extra teeth extracted from bottom front and side - Anesthesia Hx Anesthesia: No Family/Social History - Physician Review Nursing Documentation Reviewed: Yes Family/Social History: No Known Family HX Smoking Status: Current Some Days Smoker Hx Alcohol Use: Yes (social drinker) Hx Substance Use: No Hx Substance Use Treatment: No Allergies/Home Meds Allergies/Adverse Reactions: Allergies shellfish derived Allergy (Verified 07/06/17 22:57) RASH Home Medications: Home Meds Medication Instructions Recorded Confirmed Albuterol HFA [Ventolin HFA 90 2 puff IH PRN PRN 03/10/17 09/15/17 mcg/actuation (8 g)] Review of Systems - Review of Systems Constitutional: Fatigue. absent: Fevers Eyes: Other (light sensitive) ENT: Normal Respiratory: Normal Cardiovascular: Normal Gastrointestinal: Nausea, Vomiting Genitourinary Male: Normal Musculoskeletal: Normal Skin: Normal Neurological: Headache, Dizziness. absent: Focal Weakness Endocrine: Normal Hemo/Lymphatic: Normal Psychiatric: Normal Physical Exam Vital Signs Reviewed: Yes Vital Signs Temp Pulse Resp BP Pulse Ox 09/15/17 12:26 97.4 F L 83 18 140/81 98 Temperature: Afebrile Blood Pressure: Hypertensive Pulse: Regular Respiratory Rate: Normal Appearance: Positive for: Well-Appearing, Uncomfortable, Other (uncomfortable, resting in a darkened room, alert/awake, GCS = 15, oriented x 3, cooperative) Pain Distress: Moderate Mental Status: Positive for: Alert and Oriented X 3 Finger Stick Blood Glucose: 100 - Systems Exam Head: Present: Atraumatic, Normocephalic Pupils: Present: PERRL, Other (no nystagmus, + light sensitive, sclera anicteric , visual field intact b/l, fundoscopic exam: WNL, no acute papilledema) Extroacular Muscles: Present: EOMI Conjunctiva: Present: Normal Ears: Present: Normal Mouth: Present: Moist Mucous Membranes, Normal Teeth, Other (no drooling/stridor , no exudate/lesions, uvula/tongue are midline) Pharnyx: Present: Normal Nose (External): Present: Atraumatic Nose (Internal): Present: Normal Inspection Neck: Present: Normal Range of Motion, Trachea Midline, Other (no nuchal rigidity, no meningeal signs, no midline tenderness, no step off). No: MIDLINE TENDERNESS Respiratory/Chest: Present: Clear to Auscultation, Good Air Exchange, Other ( CTA b/l, no w/r/r, no tachypenia). No: Respiratory Distress, Accessory Muscle Use Cardiovascular: Present: Regular Rate and Rhythm, Normal S1, S2. No: Murmurs Abdomen: Present: Normal Bowel Sounds, Other (well nourished male, no focal tenderness, no bess's sign, no mcburney's point tenderness) Back: Present: Normal Inspection. No: CVA Tenderness, Midline Tenderness Upper Extremity: Present: Normal Inspection, Normal ROM, NORMAL PULSES, Neurovascularly Intact, Capillary Refill < 2s, Other (strength 5/5 grossly intact in all limbs, neurovasc intact b/l). No: Edema Lower Extremity: Present: Normal Inspection, NORMAL PULSES, Normal ROM, Neurovascularly Intact, Capillary Refill < 2 s, Other (strength 5/5 grossly intact in all limbs, neurovasc intact b/l; + ambulatory) Neurological: Present: GCS=15, CN II-XII Intact, Speech Normal, Other (NIH stroke scale ~ 0; no facial asymmetries, no slurr speech) Skin: Present: Warm, Normal Color, Other (cap refill < 1sec, no ulcerations, no petechiae) Psychiatric: Present: Alert, Oriented x 3 Medical Decision Making ED Course and Treatment: 09/15/17 12:57 Impression: acute headache/likely migraines i have consider all the differential diagnosis regarding pt's chief medical complaints/clinical findings, including but are not limited to: headaches, dehydration A/P: headache - labs - iv - ct - observe - supportive care 09/15/17 12:17 pt is doing well pt states he has NO headaches, 0/10 pt is now hungry 1520 pt is eating/tolerated po well pt is made aware of his medical results pt is encouraged fluids pt is encouraged not to smoke/drink pt will f/u as directed pt will be discharged home Re-evaluation Time: 14:30 Reassessment Condition: Re-examined, Improved - Lab Interpretations Lab Results: 09/15/17 12:35 09/15/17 12:35 Lab Results 09/15/17 15:00: Urine Color Yellow, Urine Appearance Clear, Urine pH 7.0, Ur Specific Pearce 1.015, Urine Protein Negative, Urine Glucose (UA) Negative, Urine Ketones Trace H, Urine Blood Negative, Urine Nitrate Negative, Urine Bilirubin Negative, Urine Urobilinogen 0.2, Ur Leukocyte Esterase Negative 09/15/17 12:36: POC Glucose (mg/dL) 100 09/15/17 12:35: Sodium 139, Potassium 3.7, Chloride 104, Carbon Dioxide 23, Anion Gap 16, BUN 14, Creatinine 0.9, Est GFR ( Amer) > 60, Est GFR (Non- Af Amer) > 60, Random Glucose 100, Calcium 10.2, Phosphorus 3.5, Magnesium 2.0, Total Bilirubin 1.3, AST 33, ALT 31, Alkaline Phosphatase 66, Total Protein 7.9 , Albumin 4.5, Globulin 3.4, Albumin/Globulin Ratio 1.3 09/15/17 12:35: WBC 7.1 D, RBC 5.52, Hgb 14.7, Hct 43.8, MCV 79.3 L, MCH 26.6, MCHC 33.6, RDW 13.6, Plt Count 174, MPV 11.1 H, Gran % 78.6 H, Lymph % (Auto) 11.6 L, [place] % (Auto) 9.3 H, Eos % (Auto) 0.1 L, Baso % (Auto) 0.4, Gran # 5.54 , Lymph # (Auto) 0.8 L, [place] # (Auto) 0.7 H, Eos # (Auto) 0.0, Baso # (Auto) 0.03 I have reviewed the lab results: Yes Interpretation: All labs normal - RAD Interpretation Narrative RAD Interpretations (Text): 09/15/17 15:18 HISTORY: Atraumatic headache COMPARISON: Comparison is made with 12/11/2016 TECHNIQUE: Axial computed tomography images were obtained through the head/brain without intravenous contrast. Radiation dose: Total exam DLP = 884.08 mGy-cm. This CT exam was performed using one or more of the following dose reduction techniques: Automated exposure control, adjustment of the mA and/or kV according to patient size, and/or use of iterative reconstruction technique. FINDINGS: HEMORRHAGE: No intracranial hemorrhage. BRAIN: No mass effect or edema. No atrophy or chronic microvascular ischemic changes. VENTRICLES: Unremarkable. No hydrocephalus. CALVARIUM: Unremarkable. PARANASAL SINUSES: Unremarkable as visualized. No significant inflammatory changes. MASTOID AIR CELLS: Unremarkable as visualized. No inflammatory changes. OTHER FINDINGS: None. IMPRESSION: Normal CT of the Head. Radiology Orders: 09/15/17 12:44 HEAD W/O CONTRAST [CT] Stat Ag Service Manager: Radiologist - Medication Orders Current Medication Orders: Discontinued Medications Acetaminophen/Butalbital/Caffeine (Fioricet) 1 tab PO ONCE ONE Stop: 09/15/17 12:48 Last Admin: 09/15/17 13:07 Dose: 1 tab MAR Pain Assessment Document 09/15/17 13:07 EWO (Rec: 09/15/17 13:07 EWO [id number]) Pain Reassessment Is this a pain reassessment? No Sodium Chloride (Sodium Chloride 0.9%) 1,000 mls @ 999 mls/hr IV .Q1H1M STA Stop: 09/15/17 13:45 Last Admin: 09/15/17 13:06 Dose: 999 mls/hr eMAR Start Stop Document 09/15/17 13:06 EWO (Rec: 09/15/17 13:06 EWO [id number]) Intravenous Solution Start Date 09/15/17 Start Time 13:06 End Date 09/15/17 End time 14:06 Total Infusion Time 60 Magnesium Sulfate 2 gm/ Sodium (Chloride) 104 mls @ 102 mls/hr IVPB ONCE ONE Stop: 09/15/17 13:47 Last Admin: 09/15/17 13:20 Dose: 102 mls/hr eMAR Start Stop Document 09/15/17 13:20 EWO (Rec: 09/15/17 13:21 EWO [id number]) Intravenous Solution Start Date 09/15/17 Start Time 13:21 End Date 09/15/17 End time 14:21 Total Infusion Time 60 Ketorolac Tromethamine (Toradol) 30 mg IVP STAT STA Stop: 09/15/17 12:47 Last Admin: 09/15/17 13:06 Dose: 30 mg MAR Pain Assessment Document 09/15/17 13:06 EWO (Rec: 09/15/17 13:07 EWO [id number]) Pain Reassessment Is this a pain reassessment? No Sleep Is patient sleeping during reassessment? No Presence of Pain Presence of Pain Yes Pain Scale Used Pain Scale Used Numeric Location Pain Location Body Senior Laboratory Technician Description Description Constant Intensity of Pain at present 10 IVP Administration Document 09/15/17 13:06 EWO (Rec: 09/15/17 13:07 EWO [id number]) Charges for Administration # of IVP Administrations 1 Metoclopramide HCl (Reglan) 10 mg IVP STAT STA Stop: 09/15/17 12:46 Last Admin: 09/15/17 13:06 Dose: 10 mg IVP Administration Document 09/15/17 13:06 EWO (Rec: 09/15/17 13:06 O [id number]) Charges for Administration # of IVP Administrations 1 Disposition/Present on Arrival - Present on Arrival Any Indicators Present on Arrival: No History of DVT/PE: No History of Uncontrolled Diabetes: No Urinary Catheter: No History of Decub. Ulcer: No History Surgical Site Infection Following: None - Disposition Have Diagnosis and Disposition been Completed?: Yes Diagnosis: Migraine headache Disposition: HOME/ ROUTINE Disposition Time: 15:19 Patient Plan: Discharge Patient Problems: Current Active Problems Problem Status Onset Migraine headache Acute Condition: STABLE Discharge Instructions (ExitCare): Migraine Headaches in Adults Print Language: GUAMANIAN Additional Instructions: Make sure to see your doctor in 1-2 days DRINK PLENTY OF FLUIDS take your medications as prescribed DONT DRINK alcohol DONT smoke if you smoke RETURN TO ED IF worse pain, cant breath, persistent vomiting, high fever >101- 102 for hours, altered behavior, slurr speech, vision changes, arm/leg weakness , unable to urinate, heavy/persistent bleeding, passing out, chest pain, or other medical emergencies Prescriptions: Ibuprofen [Motrin] 400 mg PO QID PRN #30 tab PRN Reason: Pain, Mild (1-3) Metoclopramide [Reglan] 10 mg PO TID PRN #20 tab PRN Reason: Nausea/Vomiting Referrals: Gael Jarvis MD [Primary Care Provider] - Follow up with primary Charles Levy MD [Staff Provider] - Follow up with primary Forms: [employer] (Kosovan)
[2017-09-15 13:07] LABS: BASO # 0.03 K/mm3 (0.0-2.0); BASO % 0.4 % (0.0-3.0); EOS % 0.1 % (1.5-5.0); GRAN # 5.54 (1.4-6.5); GRAN % 78.6 % (50.0-68.0); HEMOGLOBIN 14.7 g/dL (14.0-18.0); LYMPH # 0.8 (1.2-3.4); LYMPH % 11.6 % (22.0-35.0); MEAN CELL VOLUME 79.3 fl (80.0-105.0); MEAN CORPUSCULAR HEMOGLOBIN 26.6 pg (25.0-35.0); MEAN CORPUSCULAR HGB CONC 33.6 g/dl (31.0-37.0); MEAN PLATELET VOLUME 11.1 fl (7.0-11.0); MONO # 0.7 (0.1-0.6); MONO % 9.3 % (1.0-6.0); RBC 5.52 10^6/uL (3.5-6.1); RED CELL DISTRIBUTION WIDTH 13.6 % (11.5-14.5); WHITE BLOOD COUNT 7.1 10^3/ul (4.5-11.0)
[2017-09-15 13:17] LABS: ALB/GLOB RATIO 1.3 (1.1-1.8); ALBUMIN 4.5 g/dL (3.0-4.8); ALT/SGPT 31 U/L (7-56); AST/SGOT 33 U/L (17-59); BLOOD UREA NITROGEN 14 mg/dL (7-21); CALCIUM 10.2 mg/dL (8.4-10.5); GFR AFRICAN-AMERICAN > 60; GFR NON-AFRICAN AMERICAN > 60
--- NOTE | 2017-09-15 13:19 | CT ---
PROCEDURE: CT HEAD WITHOUT CONTRAST. HISTORY: Atraumatic headache COMPARISON: Comparison is made with 12/11/2016 TECHNIQUE: Axial computed tomography images were obtained through the head/brain without intravenous contrast. Radiation dose: Total exam DLP = 884.08 mGy-cm. This CT exam was performed using one or more of the following dose reduction techniques: Automated exposure control, adjustment of the mA and/or kV according to patient size, and/or use of iterative reconstruction technique. FINDINGS: HEMORRHAGE: No intracranial hemorrhage. BRAIN: No mass effect or edema. No atrophy or chronic microvascular ischemic changes. VENTRICLES: Unremarkable. No hydrocephalus. CALVARIUM: Unremarkable. PARANASAL SINUSES: Unremarkable as visualized. No significant inflammatory changes. MASTOID AIR CELLS: Unremarkable as visualized. No inflammatory changes. OTHER FINDINGS: None. IMPRESSION: Normal CT of the Head.
[2017-09-15 15:20] LABS: URINE APPEARANCE CLEAR (CLEAR); URINE BILIRUBIN NEGATIVE (NEGATIVE); URINE BLOOD NEGATIVE (NEGATIVE); URINE COLOR YELLOW (YELLOW); URINE GLUCOSE (UA) NEGATIVE (NEGATIVE); URINE LEUKOCYTE ESTERASE NEGATIVE Leu/uL (NEGATIVE); URINE PROTEIN NEGATIVE mg/dL (<30 mg/dL); URINE UROBILINOGEN 0.2 E.U./dL (<1 E.U./dL)
[2017-09-15 15:29] VITALS: BP 128/70; PULSE 78
[2017-09-15 15:58] LABS: BARBITURATES, UR POSITIVE (NEGATIVE); BENZODIAZEPINES, UR NEGATIVE (NEGATIVE); OPIATES, UR NEGATIVE (NEGATIVE); PHENCYCLIDINE, UR NEGATIVE (NEGATIVE)
== END 2017-09-15 15:33 | disposition home or self-care (01) ==
LOC: ED 12:14
DX: G43.909 Migraine, unspecified, not intractable, without status migrainosus (principal); F17.200 Nicotine dependence, unspecified, uncomplicated
CPT/HCPCS: 70450; 80053; 80324; 80345; 80346; 80349; 80353; 80358; 80361; 81003; 82948; 83735; 83992; 84100; 85025; 96365; 96375; 99285; J1885; J2765; J3475; J7040